=== PATIENT | male | born 1955 | race Caucasian/White ===

== ENCOUNTER 2018-12-03 15:35 | Outpatient (CLI) | payer OTHER | END 2018-12-03 15:39 | disposition home or self-care (01) | LOC: LAB 15:35 | DX: R97.20 Elevated prostate specific antigen [PSA] (principal) ==

== ENCOUNTER 2021-06-24 00:36 | Emergency (ER) | payer OTHER ==
[~2021-06-24] VITALS: Ht 167.6 cm; Wt 79.4 kg
[2021-06-24] MEDS ORDERED: COZAAR100 MG (01:00)
[2021-06-24] MEDS ORDERED: ATORVASTATIN CA20 MG (01:01)
[2021-06-24] MEDS ORDERED: ELIQUIS5 M1 (01:01)
[2021-06-24] MEDS ORDERED: METROPOLOL (01:02)
[2021-06-24] MEDS ORDERED: AMOX-CLAV 875-1 EACH PO (02:01)
== END 2021-06-24 02:04 | disposition home or self-care (01) ==
LOC: ER 00:36
DX: S60.512A Abrasion of left hand, initial encounter (principal); W55.03XA Scratched by cat, initial encounter; Y93.89 Activity, other specified; Y92.89 Other specified places as the place of occurrence of the external cause; Y99.8 Other external cause status